=== PATIENT | male | born 1995 | race Caucasian/White ===

== ENCOUNTER → 2016-12-06 | Outpatient (CLI) | payer OTHER, BC ==
[~2016-12-06] MED LIST: AUGMENTIN 400100 ML PO; CLEOCIN HCL300 MG PO; LORTABELIX PO; MEDROL 4MG DOSPA4 MG PO; NYSTATIN OR100 MU/ML PO
== END ==
LOC: COL.RAD 06:04
DX: R10.11 Right upper quadrant pain (principal); R11.0 Nausea
CPT/HCPCS: A9537